=== PATIENT | male | born 1935 | race Caucasian/White ===

== ENCOUNTER 2016-08-09 02:01 | Emergency (ER) | payer MEDICARE, MEDICAID ==
[~2016-08-09] VITALS: Ht 170.2 cm; Wt 104.5 kg
[2016-08-09 02:12] LABS: GLUCOSE,POINT OF CARE 167 MG/DL (70-110)
[2016-08-09] MEDS ORDERED: LIDOCAINE HCL BUFFERED 1% 20 ML VIAL INJ ONE (04:00)
[2016-08-09] MEDS ORDERED: BACITRACIN 0.9 GM PACKET OINTMENT TP ONE (04:00)
[2016-08-09] MEDS ORDERED: PERTUSS(ACELL),DIPH,TET VAC/PF 0.5 ML VIAL IM ONE (04:00)
[2016-08-09 06:17] VITALS: BP 127/80
== END 2016-08-09 06:20 | disposition home or self-care (01) ==
LOC: EMS 02:04
DX: S01.311A Laceration without foreign body of right ear, initial encounter (principal); S50.311A Abrasion of right elbow, initial encounter; S50.811A Abrasion of right forearm, initial encounter; S06.0X0A Concussion without loss of consciousness, initial encounter; F10.129 Alcohol abuse with intoxication, unspecified; E11.9 Type 2 diabetes mellitus without complications; W18.39XA Other fall on same level, initial encounter; Y93.89 Activity, other specified; Y92.89 Other specified places as the place of occurrence of the external cause; Y99.8 Other external cause status
CPT/HCPCS: 12014; 70450; 82962; 90471; 90715; 99284; J3490